=== PATIENT | male | born 1990 | race African-American/Black ===

== ENCOUNTER 2020-03-03 15:50 | Emergency (ER) | payer MEDICAID ==
[~2020-03-03] VITALS: Ht 182.9 cm; Wt 80.0 kg
[2020-03-03] MEDS ORDERED: ACETAMINOPHEN 325MG TABLET PO STA (21:11)
[2020-03-03] MEDS ORDERED: IBUPROFEN 600MG TABLET PO STA (21:11)
[2020-03-03 22:06] LABS: BASOPHILS % 0.4 % (0.0-2.0); EOSINOPHILS % 2.1 % (0.0-5.0); HEMATOCRIT. 42.2 % (42.0-52.0); LYMPHOCYTES % 41.2 % (20.0-50.0); MEAN CORPUSCULAR HEMOGLOBIN 28.5 pg (28.0-32.0); MEAN CORPUSCULAR VOLUME 85.9 fL (80.0-94.0); MEAN PLATELET VOLUME 9.2 fl (7.4-10.4); MONOCYTES % 7.7 % (2.0-8.0); NEUTROPHILS % 48.6 % (40.0-76.0); PLATELET 178 x1000/uL (130-400); RED BLOOD CELL COUNT 4.91 mill/uL (4.7-6.1); RED CELL DISTRIBUTION WIDTH 13.1 % (11.6-14.6)
[2020-03-03 22:13] LABS: CHLORIDE 108 mEq/L (98-107)
[2020-03-03 22:19] LABS: INR 1.1; PROTHROMBIN TIME 11.3 sec (9.6-11.0)
[2020-03-04 23:30] VITALS: BP 101/58
== END 2020-03-04 23:34 | disposition home or self-care (01) ==
LOC: ER 15:50
DX: G82.20 Paraplegia, unspecified (principal); Z74.01 Bed confinement status; Z87.828 Personal history of other (healed) physical injury and trauma
CPT/HCPCS: 36415; 80053; 85025; 93005; 99285